=== PATIENT | female | born 1975 | race Two or more races ===

== ENCOUNTER 2018-01-09 19:13 | Emergency (ER) | payer SELFPAY ==
[~2018-01-09] VITALS: Ht 154.9 cm; Wt 85.9 kg
[2018-01-09 19:14] VITALS: BP 146/86
[2018-01-09] MEDS ORDERED: LIDOCAINE-MPF 1%, 5ML INFIL ONE (19:30)
[2018-01-09] MEDS ORDERED: BUPIVACAINE/PF 0.5% ONE (19:43)
[2018-01-09] MEDS ORDERED: LIDOCAINE-MPF 1%, 5ML ONE ×2 (19:43→20:46)
== END 2018-01-09 21:17 | disposition home or self-care (01) ==
LOC: ED 21:05
DX: L60.0 Ingrowing nail (principal)
CPT/HCPCS: 11730; 99283